=== PATIENT | male | born 1990 | race Caucasian/White ===

== ENCOUNTER 2023-01-07 17:41 | Emergency (ER) | payer OTHER, SELFPAY ==
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
[2023-01-07 18:37] VITALS: BP 155/95; PULSE 85; RESP 18; TEMP 36.7; O2SAT 98
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
[2023-01-07 20:06] VITALS: BP 155/95; PULSE 85; RESP 18; TEMP 36.7; O2SAT 98
--- NOTE | 2023-01-09 10:42 | DCPLANNER ---
Message was sent to ortho clinic on 01/09/23 at 1042 am. Clinic to contact patient
--- NOTE | 2023-01-12 11:36 | PC.SOCIAL ---
Ortho Referral Reached out to patient regarding ortho requesting approval from [facility]. He states that he has not spoken with his insurance directly but says we can call [facility] at [phone]. Called and no answer. He provided [facility] at [phone]. Called Rd and left a voicemail requesting call back. Explained to patient that this was the holdup with scheduling his appt, but we will continue to try to reach them.
== END 2023-01-07 20:14 | disposition home or self-care (01) ==
PROVIDERS: Emergency Provider Emergency Medicine
DX: S80.02XA Contusion of left knee, initial encounter (principal); M17.12 Unilateral primary osteoarthritis, left knee; W20.8XXA Other cause of strike by thrown, projected or falling object, initial encounter; Y99.0 Civilian activity done for income or pay
CPT/HCPCS: 73562; 99283

== ENCOUNTER 2023-04-19 08:45 | Outpatient (CLI) | payer OTHER, SELFPAY ==
--- NOTE | 2023-04-19 08:57 | MR_ITS ---
WS: [id number] MRI LEFT KNEE HISTORY: L KNEE MEDIAL MENISCAL TEAR COMPARISON: Radiograph 01/07/2023. Quality of this examination is compromised by body habitus. Anterior cruciate ligament: Intact. Posterior cruciate ligament: Intact. Medial collateral ligament: Limited visualization but no abnormality. Posterior lateral corner structures: Intact. Medial menisci: Artifact through the menisci due to body habitus. Increased signal through the periph eral third of the posterior horn consistent with a radial tear. The extent of the tear and extension into the meniscal root cannot be determined otherwise. Lateral meniscus: Intact. Normal signal, size and shape. Extensor mechanism: Distal quadriceps tendon and patellar tendons are intact. Fluid and soft tissue: Small joint effusion. No Tsai's cyst. Osseous and articular structures: Patellofemoral compartment: Normal. Medial compartment: Narrowing of the medial compartment. Significant artifact to the medial compartme nt. There is a component of osteophytosis. The extent of meniscal abnormality is difficult to determi ne. Lateral compartment: Mild and of the lateral compartment. Meniscus is difficult to evaluate. IMPRESSION: 1. Study is significantly compromised by body habitus. 2. Suspect radial tear through posterior medial meniscus involving the periphery. There could be a c omponent of the tear extending into the meniscal root but this area is poorly visualized. 3. Mild narrowing medial lateral joint compartments. Slightly greater degenerative changes in the me dial compartment. The extent of chondromalacia cannot be determined on this examination.
== END 2023-04-19 08:46 | disposition home or self-care (01) ==
LOC: RAD 08:46
PROVIDERS: Visit Provider Family Medicine
DX: S83.242A Other tear of medial meniscus, current injury, left knee, initial encounter (principal)
CPT/HCPCS: 73721

== ENCOUNTER 2023-10-25 10:15 | Outpatient (CLI) | payer OTHER, SELFPAY | END 2023-10-25 10:16 | disposition home or self-care (01) | PROVIDERS: Visit Provider Family Medicine | DX: G47.33 Obstructive sleep apnea (adult) (pediatric) (principal); G47.36 Sleep related hypoventilation in conditions classified elsewhere | CPT/HCPCS: G0399 ==